=== PATIENT | female | born 1970 | race Caucasian/White ===

== ENCOUNTER 2020-04-23 01:21 | Outpatient (CLI) | payer BC, SELFPAY ==
[2020-04-23 19:31] LABS: SARS-CoV-2 RNA PCR Negative
== END 2020-04-23 01:22 | disposition home or self-care (01) ==
LOC: ANHCOVIDDT 01:21
PROVIDERS: Visit Provider Otolaryngology
DX: Z01.818 Encounter for other preprocedural examination (principal); Z20.828 Contact with and (suspected) exposure to other viral communicable diseases
CPT/HCPCS: 87635; C9803; U0003

== ENCOUNTER 2020-04-25 00:20 | Day surgery (SDC) | payer BC, SELFPAY ==
[2020-04-18 16:30] VITALS: BMI 24.5
--- NOTE | 2020-04-21 14:48 | P.PNAN_ITS ---
Anes - Initial Pre Proc Eval Procedure: Operation Date: 04/25/20 08:00 Proposed Procedures p Left Ear T-Tube Placement - Cristian Davidson MD Date/Time: 04/21/20 14:48 Surgeon: Cristian Davidson MD Pre Op Diagnosis: Hearing Loss Patient Data Age: 50 Gender: F Height: 1.63 m Weight: 65 kg Allergies Allergy/AdvReac Type Severity Reaction Status Date / Time No Known Allergies Allergy Verified 04/18/20 16:32 Home Medications Medication Instructions Recorded Confirmed Type estradiol 0.5 mg PO HS 04/18/20 04/18/20 History estradiol 1 mg PO HS 04/18/20 04/18/20 History naltrexone-bupropion [Contrave] 1 tablet PO BID 04/18/20 04/18/20 History nortriptyline 50 mg PO HS 04/18/20 04/18/20 History triamterene-hydrochlorothiazid 1 tablet PO EVERY OTHER DAY 04/18/20 04/18/20 History Patient hx anesthesia problems: none Family hx anesthesia problems: none [facility] Past Medical History Medical History Anxiety Migraine Social History Social History Smoking status: Never smoker Living arrangements: with family Spiritual care concerns: No Anes - Eval Final PreProcedure Day of Procedure 04/21/20 14:48 Patient weight: normal Heart: regular rate and rhythm Lungs: clear to auscultation and normal air movement Airway: Mallampati scale class II Neurological: alert and oriented Last oral intake: >/= 8 hours ASA classification: II Emergent: no Anesthetic plan: proceed Anesthesia type and monitoring: general GIVS and LMA Informed Consent: The patient's anesthetic plan and its attendant risks and jammie efits were discussed with the patient/family/POA. Questions were solicited and answers provided to the satisfaction of the patient/family/POA.
[2020-04-25] VITALS (8 sets, daily range): BP systolic 104–115; BP diastolic 62–89; PULSE 64–79; RESP 16–20; TEMP 36.1–36.4; O2SAT 99–100
[2020-04-25] MEDS: LACTATED RINGERS 1,000 ML 30 ML IV CONT (06:37)
[2020-04-25 07:02] LABS: Anion Gap 5 mmol/L (8-16); Blood Urea Nitrogen 18 mg/dL (7-17); Calcium 8.5 mg/dL (8.4-10.2); Carbon Dioxide 30 mmol/L (22-30); Chloride 102 mmol/L (98-107); Estimated CRCL calculation 63 ml/min; Estimated Glomerular Filt Rate > 60; Glucose 91 mg/dL (65-105); Potassium 3.6 mmol/L (3.4-5.0); Sodium 137 mmol/L (137-145)
--- NOTE | 2020-04-25 07:16 | P.HP_ITS ---
H&P: HPI History of Present Illness Date/Time: 04/25/20 07:16 Chief Complaint: left ETD Narrative: Josy Santos is a 50 year old female here for left t tube placement Review of Systems Review of Systems: All systems reviewed & are unremarkable except as noted in HPI and below PMFSH Past Medical History Medical History Anxiety Migraine Social History Social History Smoking status: Never smoker Living arrangements: with family Spiritual care concerns: No Meds Home Medications and Allergies Home Medications Medication Instructions Recorded Confirmed Type estradiol 0.5 mg PO HS 04/18/20 04/18/20 History estradiol 1 mg PO HS 04/18/20 04/18/20 History naltrexone-bupropion [Contrave] 1 tablet PO BID 04/18/20 04/18/20 History nortriptyline 50 mg PO HS 04/18/20 04/18/20 History triamterene-hydrochlorothiazid 1 tablet PO EVERY OTHER DAY 04/18/20 04/18/20 History Allergies Allergy/AdvReac Type Severity Reaction Status Date / Time No Known Allergies Allergy Verified 04/18/20 16:32 Exam Narrative: Exam Narrative: left ETD with effusion and retraction, rest of exam unremarkable H&P: Results Labs Labs: [facility] 04/25/20 06:35 Sodium 137 Potassium 3.6 Chloride 102 Carbon Dioxide 30 BUN 18 H Creatinine 0.80 Glucose 91 Calcium 8.5 Assessment and Plan Assessment and plan (1) Eustachian tube dysfunction: Qualifiers: Laterality: left Qualified Code(s): H69.82 - Other specified disorders of Eustachian tube, left ear Code(s): H69.80 - Other specified disorders of Eustachian tube, unspecified ear Status: Acute Assessment and Plan: left ETD here for left t-tube placement under sedation
--- NOTE | 2020-04-25 07:17 | WPDHPUPDATE1 ---
History and Physical Update Update Date/Time: 04/25/20 07:17 History and Physical has been reviewed, including an updated exam of the patient. There are NO changes in the patient's condition. Risks, benefits, and alternatives have been discussed and questions answered. Patient agrees to proceed with procedure.
[2020-04-25] MEDS: CIPROFLOXACIN HC OTIC 10 ML 3 DROP RIGHT EAR (08:25)
--- NOTE | 2020-04-25 08:26 | P.OP_ITS ---
Procedure Note - Detailed Date of procedure: 04/25/20 Pre-op diagnosis: Hearing Loss Post-op diagnosis: same Procedure performed: left T- tube placement Description of procedure: On the date of surgery, the patient was identified in the preoperative holding area. All questions were answered and she consented to surgery and elected to proceed. The patient was then brought to the OR and placed under general anesthesia via laryngeal mask. A timeout was performed verifying the correct patient identity and procedure which they were. Marked for LEFT ear t-tube placement. Under binocular microscopy, attention was directed to the left ear. Cerumen was removed using a curette and the tympanic membrane was visualized. A myringotomy incision was made in the anterior-inferior quadrant in a radial fashion. No effusion encountered. A modified garcia T-tube was placed and secured with a deal pick. With the tube secured, ear drops were applied and a cotton ball was placed in the canal. Once finished, care of the patient was returned to anesthesia who woke the patient up and transferred them to the PACU for recovery in stable condition without complication. Cristian Davidson M.D. Anest[facility]: [facility] Surgeon: Cristian Davidson MD Estimated blood loss (mL): 0 Drains: No Packing: No Pathology: none sent Complications: No immediate complications Condition: stable Disposition: same day Findings: left modified garcia t-tube placed. No effusion today.
== END 2020-04-25 10:12 | disposition home or self-care (01) ==
PROVIDERS: Anesthesiology; Visit Provider Otolaryngology
PROC: (CPT 69436; principal; 2020-04-25 08:00)
DX: H91.92 Unspecified hearing loss, left ear (principal); H69.80 Other specified disorders of Eustachian tube, unspecified ear; F41.9 Anxiety disorder, unspecified
CPT/HCPCS: 69436; 36415; 80048; J2250; J2704; J7120